=== PATIENT | female | born 1980 | race Caucasian/White ===

== ENCOUNTER → 2017-05-25 | Outpatient (CLI) | payer OTHER | LOC: FIMAGING 13:03 | PROVIDERS: ATTEND Advanced Practice Midwife | PROC: 10903ZU Drainage of Amniotic Fluid, Diagnostic from Products of Conception, Percutaneous Approach (ICD-10-PCS; principal; 2017-05-25) | DX: O09.512 Supervision of elderly primigravida, second trimester (principal); Z3A.21 21 weeks gestation of pregnancy | CPT/HCPCS: 88235-90; 88291-90 ==

== ENCOUNTER → 2017-07-27 | Outpatient (CLI) | payer OTHER | LOC: FIMAGING 09:02 | PROVIDERS: ATTEND Advanced Practice Midwife | DX: O35.8XX0 Maternal care for other (suspected) fetal abnormality and damage, not applicable or unspecified (principal); Z3A.30 30 weeks gestation of pregnancy ==

== ENCOUNTER → 2017-08-17 | Outpatient (CLI) | payer OTHER | LOC: FIMAGING 09:54 | PROVIDERS: ATTEND Advanced Practice Midwife | DX: O09.513 Supervision of elderly primigravida, third trimester (principal); Z3A.33 33 weeks gestation of pregnancy ==

== ENCOUNTER → 2017-09-16 | Outpatient (CLI) | payer OTHER | LOC: FIMAGING 11:54 | PROVIDERS: ATTEND Advanced Practice Midwife | DX: O09.513 Supervision of elderly primigravida, third trimester (principal); O35.8XX0 Maternal care for other (suspected) fetal abnormality and damage, not applicable or unspecified; Z3A.37 37 weeks gestation of pregnancy ==

== ENCOUNTER 2017-10-12 10:26 | Inpatient (IN) | payer OTHER ==
[2017-10-12] MEDS ORDERED: LIDOCAINE 1% 300 MG/30 ML SDV SC PRN (11:03)
[2017-10-12] MEDS ORDERED: MISOPROSTOL 200 MCG TAB PR PRN (11:03)
[2017-10-12] MEDS ORDERED: IBUPROFEN 600 MG TAB PO PRN (11:03)
[2017-10-12] MEDS ORDERED: OXYTOCIN/RINGERS LACTATE 1,000 ML IV PRN (11:03)
[2017-10-12] MEDS ORDERED: EPSOM SALT 454 GM TP PRN (11:03)
[2017-10-12] MEDS ORDERED: OLIVE OIL 118 ML BTL MISC PRN (11:03)
[2017-10-12] MEDS ORDERED: TERBUTALINE SULFATE 1 MG/ML VIAL IV PRN (11:03)
[2017-10-12] MEDS ORDERED: LR 1,000 ML IV PRN (11:03)
[2017-10-12] MEDS ORDERED: LR 500 ML IV PRN (11:52)
--- NOTE | 2017-10-12 11:54 | PDGENHP ---
History and Physical History and Physical: CARE: [facility] HPI: Patient is a 37 yo at 41.1 weeks ega who presents to L&D for IOL for oligohydramnios- COURTNEY 3 today per ultrasound. Baby has been active, denies painful cntx/LOF/VB. Sahni bulb was placed in the office prior to her admission here. EDC: 10/04/17 which is based on Ultrasound at 10 weeks. Her is complicated by: - AMA - h/o daily marijuana use - stopped with . UDS first trimester negative - persistent renal pelvis dilation - has met with pediatric urology who made following recommendations: - repeat U/S on baby at 48 hours of life - VCUG first week of life Review of Systems: Constitutional: Denies any fever, chills, or fatigue HEENT: denies any visual changes, difficulty swallowing, hearing loss Cardiovascular: Denies any chest pain, palpitations, leg swelling Respiratory: denies any cough, wheezing, or shortness of breathe GI: Denies any nausea, vomiting, diarrhea, constipation : denies any dysuria, urgency, frequency, vaginal bleeding Musculoskeletal: denies any muscle or bone pain Skin: denies any rashes Neuro: denies any headache, seizures, lightheadedness, dizziness, or loss of consciousness Psychiatric: denies any depression, anxiety, or SI/HI thoughts HISTORY: Previous OB history: 2005 - elective AB Past medical history: HSV 1, high cholesterol Past surgical history: Tonsils at age 6, wisdom teeth Medications: PNV Allergies (list reaction): NKDA LABS: Rh: B pos ABS: Neg Rubella: Immune HbsAg: NR HIV: NR VDRL: NR 1hr: 65 GC: Neg Chlamydia: Neg Pap: Normal GBS: neg Innatal/standard panel - WNL BMI: (prepreg) 20.5 PHYSICAL EXAM: Constitutional: WN, A&Ox3 HEENT: normocephalic atraumatic, supple Heart: RRR, no murmur Chest: CTA-B Abdomen: Soft, nontender, gravid SVE: sahni bulb in place - (was -/-2 in office) Extremities: mod pedal edema, negative cher's sign Neuro: grossly normal Psych: normal affect assessment: Reassuring FHTs, baseline 120s +accels, no decels, moderate variability Contractions: toco irregular cntx Assessment: 1) 37 yo G 2 P 0 with IUP@ 41.1 weeks ega 2) IOL for oligohydramnios 3) GBS neg 4) Cat 1 FHR tracing Plan: 1) Admit to L&D 2) Start pitocin 3) Continuous EFM 4) Diet as tolerated 5) Pain relief as patient desires 6) Anticipate
[2017-10-12] MEDS ORDERED: OXYTOCIN/RINGERS LACTATE 500 ML IV SCH (12:00)
[2017-10-12 12:15] LABS: PLATELET COUNT 278 10^3/uL (150-400)
[2017-10-12] MEDS ORDERED: LIDOCAINE 1% 300 MG/30 ML SDV ONE (17:08)
[2017-10-12] MEDS ORDERED: OXYTOCIN 10 UNIT/ML VIAL ONE (17:09)
[2017-10-12] MEDS ORDERED: AMMONIA AROMATIC 1 EACH AMP IH ONE (17:09)
[2017-10-12] MEDS ORDERED: MISOPROSTOL 200 MCG TAB ONE (17:09)
[2017-10-12] MEDS ORDERED: TERBUTALINE SULFATE 1 MG/ML VIAL ONE (17:09)
[2017-10-12] MEDS ORDERED: OLIVE OIL 118 ML BTL ONE (17:09)
--- NOTE | 2017-10-12 18:15 | OBPROG ---
Labor Progress Note Assessment/Plan: Assessment: 37 y/o at 41.1 weeks ega IOL for oligo latent phase labor AROM sml amt clear fluid Category 1 EFM Pitocin 10 mu Plan: Continue pitocin induction per protocol Pain relief as patient desires Anticipate 10/12/17 18:11 Subjective/Intrapartum Course: 10/12/17 18:13 Doing well. Getting more uncomfortable since AROM. Starting to breath with contractions. Objective: 10/12/17 12:05 Patient ABO/Rh B POSITIVE 10/12/17 12:05 - SVE Dilation (cm): 3 Effacement (%): 50 Station: -2 Membranes: AROM Amniotic Fluid Color: Clear - Contraction Pattern Assessment Current Contraction Pattern: Regular - Procedures Non-surgical Procedures: Amniotomy Oxytocin Orders Assessment - Pre-Induction/Augmentation Assessment Presentation: Vertex Gestational Age: 41 week(s) and 1 day(s) Gestational Age Determined By: Ultrasound Membrane Status: Ruptured Current Contraction Pattern: Regular - Induction/Augmentation Consent Risks/Benefits of Procedure Reviewed/Pt Agrees to Proceed: Yes ICD10 Worksheet Patient Problems: Problems Problem Status Onset Oligohydramnios Acute Post-dates Acute - ICD10 Problem Qualifiers (1) Oligohydramnios (2) Post-dates
[2017-10-12] MEDS ORDERED: SIMETHICONE 80 MG TAB CHEW PO PRN (21:40)
[2017-10-12] MEDS ORDERED: HYDROCORTISONE 0.5% CREAM TP PRN (21:40)
--- NOTE | 2017-10-12 21:48 | OBDEL ---
Info Type: Vaginal Presentation at Delivery: Vertex L&D Analgesia/Anesthesia Type: Local GBS+: No Intrapartum Medications: Generic Name Dose Route Start Last Admin Trade Name Freq PRN Reason Stop Dose Admin Lactated Ringer's 1,000 mls @ 0 mls/hr 10/12/17 11:03 10/12/17 12:27 Lr IV 10/13/17 11:02 1,000 mls PRN PRN Administration SEE PROTOCOL CONDITIONS Protocol Per Protocol Oxytocin/Lactated Ringer's 500 mls @ 0 mls/hr 10/12/17 12:00 10/12/17 12:27 Pitocin 30 Units/Lr (Premix) IV 04/10/18 11:59 500 mls CONT BEATRICE Administration Protocol Per Protocol Lidocaine HCl 300 mg 10/12/17 11:03 10/12/17 20:26 Lidocaine Hcl 1% SC 04/10/18 11:02 300 mg ONCE PRN Administration episiotomy Discontinued Medications Generic Name Dose Route Start Last Admin Trade Name Freq PRN Reason Stop Dose Admin Ibuprofen 600 mg 10/12/17 11:03 10/12/17 20:41 Motrin PO 600 mg ONCE PRN Administration post , pain - Hospital Course Intrapartum: 10/12/17 18:13 Doing well. Getting more uncomfortable since AROM. Starting to breath with contractions. Indications for Delivery: Oligohydramnios Vaginal Delivery - Delivery Provider Delivery Physician/CNM: Bela Ricardo - Labor and Delivery Onset of Contractions Date: 10/12/17 Onset of Contractions Time: 16:40 Onset of Contractions Type: Induced Rupture of Membranes Date: 10/12/17 Rupture of Membranes Time: 16:38 Rupture of Membranes Type: Artificial Amniotic Fluid Color: Clear Dilation Complete Date: 10/12/17 Dilation Complete Time: 20:00 Placenta Delivery Date: 10/12/17 Placenta Delivery Time: 20:21 Total Hours of Labor: 3 Non-surgical Procedures: Amniotomy Laceration: Other (Specify) (left labial) Repair: 3-0, Vicryl Vaginal Sponge Count Correct: Yes Vaginal Needle Count Correct: Yes Vaginal Sweep Performed: No EBL: 200 Delivery Events: None Data RAMIN: 10/04/17 Gestational Age: 41 week(s) and 1 day(s) Jj Delivery Date: 10/12/17 Delivery Time: 20:14 Sex of Infant: Female Score (1 Min): 8 Score (5 Min): 9 ICD10 Worksheet Patient Problems: Problems Problem Status Onset Oligohydramnios Acute Post-dates Acute - ICD10 Problem Qualifiers (1) Oligohydramnios (2) Post-dates
[2017-10-12] MEDS: HYDROCODONE/APAP 5/325 TAB PO PRN (22:13)
[2017-10-12 22:26] LABS: PLATELET COUNT 260 10^3/uL (150-400)
[2017-10-12] MEDS ORDERED: fentaNYL 100 MCG/2 ML INJ ONE (22:47)
[2017-10-12] MEDS: fentaNYL 100 MCG/2 ML INJ IVP PRN (22:59)
--- NOTE | 2017-10-12 23:56 | OBPP ---
Progress Note Assessment/Plan: Assessment: 37 y/o at 41.1 weeks ega s/p with left labial laceration Right vaginal hematoma which appears stable after 1 hour Severe pt discomfort Plan: Fentanyl 50 mcg IV Consult with Dr Rodriguez - see consult note 10/12/17 23:50 10/13/17 00:21 Subjective/ Course: 10/12/172229 Notified by RN that patient is having sever perineal discomfort - particularly tailbone, rectal, right vaginal. Not relieved with ibuprofen and [place]. Objective: 10/12/17 22:08 10/12/17 22:08 Patient ABO/Rh B POSITIVE 10/12/17 12:05 Uric Acid 5.6 mg/dL (2.5-6.8) 10/12/17 22:08 Total Bilirubin 0.6 mg/dL (0.1-1.4) 10/12/17 22:08 Conjugated Bilirubin 0.3 mg/dL (0.0-0.5) 10/12/17 22:08 Unconjugated Bilirubin 0.3 mg/dL (0.0-1.1) 10/12/17 22:08 AST 29 IU/L (14-46) 10/12/17 22:08 ALT 22 IU/L (9-52) 10/12/17 22:08 Lactate Dehydrogenase 511 IU/L (313-618) 10/12/17 22:08 Vagina examined - found to have what appears to be a hematoma that has formed behind right vaginal wall that feels approximately 8X5 cm. Vaginal bleeding WNL. FF/U2. Uterine Position/Fundal Height: Umbilicus -1 Uterine Tone: Firm
[2017-10-13] MEDS: fentaNYL 100 MCG/2 ML INJ IVP PRN ×2 (00:34→01:05)
--- NOTE | 2017-10-13 00:36 | PDHPUP ---
History & Physical Update H&P update statement: This history and physical update is based on an assessment of the patient which was completed after admission or registration (within 24 hours), but prior to the surgery/procedure. Consult from Bela Ricardo CNM. Pt had an unmedicated at 2013, c/b left labial laceration - repaired without incident. About one hour after delivery she complained of rectal pressure and pain. Exam by Bela Ricardo CNM, who delivered her, noted a right vaginal sidewall hematoma around 2230. Pt was given Fentanyl 50 mcg - which took the edge off her pain temporarily. An hour later she as asking for more pain medication and was unable to get comfortable again. Repeat exam by Bela and consultation and exam by me revealed a right vaginal sidewall hematoma, approximately [id number] - per Bela, has not significantly increased in size. Pt's pain is increasing. Discussed conservative mgmt vs surgical evacuation. Pt cannot tolerate conservative mgmt due to pain. A/p: 37 yo s/p 4 hours ago, with a R vaginal sidewall hematoma. 1) Written informed consent for surgical evacuation of vaginal hematoma. 2) T&C x 2, DIC panel now 3) Case discussed with Dr. Miller - will take pt down to the main OR as the possibility of significant blood loss is present, and the availability of the assistance of the trauma surgeon suction plate roller hand would be served in the main OR. Pina Rodriguez MD, FACOG H&P update: H&P reviewed & patient examined
[2017-10-13 00:46] LABS: PLATELET COUNT 255 10^3/uL (150-400)
[2017-10-13 00:54] LABS: INR 0.95 (0.83-1.16); PROTIME(PATIENT) 12.9 SEC (12.0-15.0)
[2017-10-13] MEDS ORDERED: IOPAMIDOL (ISOVUE-300) 100 ML BTL ONE (01:03)
--- NOTE | 2017-10-13 01:24 | SOAPPROG ---
SOAP Progress Note Assessment/Plan: Discussed case with Dr. Ng, trauma surgeon and again with Dr. Miller. He recommended proceeding with a CT scan, with IV contrast, to get a better idea of the extent of the hematoma and if it is actively bleeding vs stable. Will place urinary catheter, and proceed with imaging. Pina Rodriguez MD 10/13/17 01:07 Objective: Vital Signs Temp Pulse Resp BP Pulse Ox 37.1 C 68 16 132/79 H 96 10/13/17 00:18 10/13/17 00:18 10/13/17 00:18 10/13/17 00:18 10/13/17 00:18 Laboratory Results 10/13/17 00:16 10/12/17 22:08 10/11/17 10/12/17 10/13/17 05:59 05:59 05:59 Output Total 200 Balance -200 PT 12.9 SEC (12.0-15.0) 10/13/17 00:16 INR 0.95 (0.83-1.16) 10/13/17 00:16 ICD10 Worksheet Patient Problems: Problems Problem Status Onset Oligohydramnios Acute Post-dates Acute
[2017-10-13] MEDS: ACETAMINOPHEN 325 MG TAB PO SCH ×4 (02:06→20:32)
--- NOTE | 2017-10-13 02:08 | SOAPPROG ---
SOAP Progress Note Assessment/Plan: Discussed case with Dr. Ng, trauma surgeon and again with Dr. Miller. He recommended proceeding with a CT scan, with IV contrast, to get a better idea of the extent of the hematoma and if it is actively bleeding vs stable. Will place urinary catheter, and proceed with imaging. Pina Rodriguez MD 10/13/17 01:07 10/13/17 02:[address] Vegas in Radiology - CT scan shows active extravasation into the hematoma, which is displacing the rectum to the left, extending up to the mid sacrum into the ischiorectal fossa. Extends to the piriformis, but not the ileopsoas. Discussed findings with pt, Anesthesiologist Dr. Miller, and Dr. Ng. Will proceed with surgical evacuation as originally planned. Pina Rodriguez MD 10/13/17 02:12 Objective: Vital Signs Temp Pulse Resp BP Pulse Ox 37.1 C 68 16 132/79 H 96 10/13/17 00:18 10/13/17 00:18 10/13/17 00:18 10/13/17 00:18 10/13/17 00:18 Laboratory Results 10/13/17 00:16 10/12/17 22:08 10/11/17 10/12/17 10/13/17 05:59 05:59 05:59 Output Total 200 Balance -200 PT 12.9 SEC (12.0-15.0) 10/13/17 00:16 INR 0.95 (0.83-1.16) 10/13/17 00:16 ICD10 Worksheet Patient Problems: Problems Problem Status Onset Oligohydramnios Acute Post-dates Acute
[2017-10-13 02:24] LABS: PLATELET COUNT 249 10^3/uL (150-400)
[2017-10-13] MEDS ORDERED: MIDAZOLAM 2 MG/2 ML VIAL ONE (02:28)
[2017-10-13] MEDS ORDERED: CITRIC ACID/SODIUM CITRATE 30 ML UDCUP ONE (02:34)
[2017-10-13] MEDS ORDERED: MIDAZOLAM 2 MG/2 ML VIAL IVP ONE (02:38)
[2017-10-13] MEDS ORDERED: CITRIC ACID/SODIUM CITRATE 30 ML UDCUP PO ONE (02:38)
--- NOTE | 2017-10-13 02:39 | PDANEPAE ---
ANE Past Medical History - Cardiovascular History Hx Hypertension: No Hx Arrhythmias: No Hx Chest Pain: No Hx Coronary Artery / Peripheral Vascular Disease: No Hx CHF / Valvular Disease: No Hx Palpitations: No - Pulmonary History Hx COPD: No Hx Asthma/Reactive Airway Disease: No Hx Recent Upper Respiratory Infection: No Hx Oxygen in Use at Home: No Hx Sleep Apnea: No Sleep Apnea Screening Result - Last Documented: Negative ANE Review of Systems Review of Systems: ANE Patient History - Allergies Allergies/Adverse Reactions: No Known Allergies Allergy (Unverified 10/12/17 11:03) - Home Medications Home Medications: Docosahexanoic Acid [ Dha] 200 mg PO 10/12/17 [Last Taken 10/12/17 1] - NPO status NPO Since - Liquids (Date): 10/12/17 NPO Since - Liquids (Time): 23:00 NPO Since - Solids (Date): 10/12/17 NPO Since - Solids (Time): 23:00 ANE Labs/Vital Signs - Labs Result Diagrams: 10/13/17 00:16 10/12/17 22:08 - Vital Signs Blood Pressure: 132/79 Heart Rate: 68 Respiratory Rate: 16 O2 Sat (%): 96 Height: 172.72 cm Weight: 86.183 kg ANE Physical Exam - Airway Neck exam: FROM Mallampati Score: Class 1 Mouth exam: normal dental/mouth exam - Pulmonary Pulmonary: no respiratory distress - Cardiovascular Cardiovascular: regular rate and rhythym - ASA Status ASA Status: II, E JACKELIN Anesthesia Plan Anesthesia Plan: general endotracheal anesthesia
[2017-10-13] MEDS ORDERED: PROPOFOL 200 MG/20 ML VIAL ONE ×2 (02:43→03:25)
[2017-10-13] MEDS ORDERED: fentaNYL 250 MCG/5 ML INJ ONE (02:43)
[2017-10-13] MEDS ORDERED: TRANEXAMIC ACID 1,000 MG/10 ML VIAL ONE (03:15)
[2017-10-13] MEDS ORDERED: LR 1,000 ML IV ONE (03:16)
[2017-10-13] MEDS ORDERED: ceFAZolin 2 GM in NS 100 ML IV ONE (03:19)
[2017-10-13] MEDS ORDERED: DEXAMETHASONE 4 MG/ML VIAL ONE (03:24)
[2017-10-13] MEDS ORDERED: LIDOCAINE 2% 5 ML SDV ONE (03:24)
[2017-10-13] MEDS ORDERED: ONDANSETRON 4 MG/2 ML VIAL ONE (03:24)
[2017-10-13] MEDS ORDERED: ceFAZolin 1 GM VIAL ONE ×2 (03:24)
[2017-10-13] MEDS ORDERED: ROCURONIUM 100 MG/10 ML VIAL ONE (03:24)
[2017-10-13] MEDS ORDERED: ESTROGENS,CONJUGATED 30 GM CRTUBE VG ONE (03:55)
[2017-10-13] MEDS ORDERED: fentaNYL 100 MCG/2 ML INJ IVP PRN (04:16)
[2017-10-13] MEDS ORDERED: PROMETHAZINE HCL 25 MG/ML INJ IVP PRN (04:16)
[2017-10-13] MEDS ORDERED: NALOXONE HCL 0.4 MG/ML INJ IVP PRN (04:16)
[2017-10-13] MEDS ORDERED: LR 500 ML IV PRN (04:16)
--- NOTE | 2017-10-13 04:16 | POSTOPPROG ---
Post Op Note Date of Operation: 10/13/17 Surgeon: Pina Rodriguez Buffet Waiter/Waitress: Bela Ricardo CNM, needed for adequate retraction and exposure Anesthesiologist: Ricardo Miller MD Anesthesia: GET(General Endotracheal) Pre-op Diagnosis: Right vaginal hematoma Post-op Diagnosis: Same Indication: Right vaginal hematoma causing severe pain and actively bleeding per CT Procedure: Right vaginal hematoma evacuation and repair Findings: Large right vaginal sidewall hematoma Inf/Abcess present in the surg proc area at time of surgery?: No EBL: 100-500 Total fluids administered: 1500 ml Complications: none
--- NOTE | 2017-10-13 04:18 | POSTANESTH ---
Post Anesthetic Evaluation Cardiovascular Status: Normal, Stable Respiratory Status: Normal, Stable Level of Consciousness/Mental Status: Can Participate in Eval Pain Control: Adequate, Prn Tx Ordered Nausea/Vomiting Control: Adequate, Prn Tx Ordered Complications Possibly Related to Anesthesia: None Noted
[2017-10-13] MEDS ORDERED: HYDROCODONE/APAP 5/325 TAB ONE (04:38)
[2017-10-13] MEDS: HYDROCODONE/APAP 5/325 TAB PO PRN (04:40)
--- NOTE | 2017-10-13 04:56 | GOP ---
[f rep st] OPERATIVE REPORT DATE OF OPERATION: 10/13/2017 SURGEON: Pina Rodriguez MD PROCED TECH: Bela Ricardo CNM, needed for adequate retraction and exposure. ANESTHESIA: General endotracheal. ANESTHESIOLOGIST: Alex Miller MD. PREOPERATIVE DIAGNOSIS: Right vaginal hematoma causing severe pain and actively bleeding per CT. POSTOPERATIVE DIAGNOSIS: Same PROCEDURE PERFORMED: Right vaginal hematoma evacuation and repair. FINDINGS: Right vaginal sidewall hematoma, approximately 15 x 15 x 10 cm, compressing the rectum and pushing it to the left. Fully decompressed at end of procedure. ESTIMATED BLOOD LOSS: 400 mL. INDICATIONS: This 37-year-old 2, para 0 now 1, female had an unmedicated spontaneous vaginal delivery. Approximately an hour after her delivery, she began complaining of rectal discomfort and pain. Shortly after that, examination confirmed that she had a right vaginal hematoma. She was given pain medication and the exam was repeated about an hour later. Her pain was becoming intractable, so surgery was being considered even though it did not seem that the hematoma had significantly increased in size. A CT scan with IV contrast was obtained and this suggested that there was continued active extravasation in the area of the hematoma and did confirm that the hematoma was pushing on the rectum. DESCRIPTION OF PROCEDURE: Written informed consent was obtained from the patient. She was then taken down to the preoperative area. She was taken to the operating room and placed in the dorsal supine position. A time out was performed. She was given 2 gm of Ancef IV. When general anesthesia was deemed adequate, she was placed in the modified dorsal lithotomy position using the [place] stirrups. Her vagina and perineum were sterilely draped in the standard fashion. A weighted speculum was inserted into the vagina. [place] and [place] retractors were used to obtain adequate exposure. Further examination confirmed the existence of the hematoma. An incision was made over the hematoma approximately 8 cm long longitudinally along the vaginal sidewall. There was a significant amount of clot that was expressed from the hematoma cavity. Suction was used to help clean out the hematoma cavity. A combination of cautery and sutures were used to obtain excellent hemostasis at the base of the hematoma. The hematoma cavity was then closed with 3-0 Monocryl in a running locked fashion. The incision to the hematoma was closed with 2-0 Monocryl also in a running locked fashion. Excellent hemostasis was noted. A medial right labial laceration was also repaired with the 3-0 Monocryl. The patient tolerated the procedure well. She was extubated in the operating room and taken to the recovery room in stable condition with her Mckinney catheter in place. IV FLUIDS: 1500 mL. COMPLICATIONS: None. /[id number]/MODL MTDD
[2017-10-13] MEDS: IBUPROFEN 600 MG TAB PO SCH ×4 (07:07→20:30)
[2017-10-13] MEDS: DOCUSATE SODIUM 100 MG CAP PO PRN (20:30)
[2017-10-14] MEDS: IBUPROFEN 600 MG TAB PO SCH ×4 (02:34→19:56)
[2017-10-14] MEDS: ACETAMINOPHEN 325 MG TAB PO SCH ×4 (02:39→22:31)
[2017-10-14] MEDS: DOCUSATE SODIUM 100 MG CAP PO PRN ×2 (08:29→19:56)
--- NOTE | 2017-10-14 10:27 | OBPP ---
Progress Note Assessment/Plan: Assessment: [id number] s/p s/p hematoma evacuation PPD#2 anemia Plan: cont PP care pain management PRN cont to monitor bleeding anticipate d/c home tomorrow if bleeding and pain stable 10/14/17 10:23 Subjective/ Course: 10/12/172229 Notified by RN that patient is having sever perineal discomfort - particularly tailbone, rectal, right vaginal. Not relieved with ibuprofen and [place]. 10/14/17 10:25 Pt doing well, states she is having pain- but improves with ibuprofen. She reports moderate bleeding. She is and pumping. FOB @ BS and supportive. Objective: 10/13/17 00:16 10/12/17 22:08 Patient ABO/Rh B POSITIVE 10/12/17 12:05 Uric Acid 5.6 mg/dL (2.5-6.8) 10/12/17 22:08 Total Bilirubin 0.6 mg/dL (0.1-1.4) 10/12/17 22:08 Conjugated Bilirubin 0.3 mg/dL (0.0-0.5) 10/12/17 22:08 Unconjugated Bilirubin 0.3 mg/dL (0.0-1.1) 10/12/17 22:08 AST 29 IU/L (14-46) 10/12/17 22:08 ALT 22 IU/L (9-52) 10/12/17 22:08 Lactate Dehydrogenase 511 IU/L (313-618) 10/12/17 22:08 Temp Pulse Resp BP Pulse Ox 36.1 C 71 26 H 117/79 96 10/14/17 09:11 10/14/17 09:11 10/14/17 09:11 10/14/17 09:11 10/14/17 09:11 Uterine Position/Fundal Height: Umbilicus -2, Midline Uterine Tone: Firm Physical Exam - Physical Exam General Appearance: WD/WN, alert, no apparent distress Neck: supple Respiratory: normal breath sounds Cardiac/Chest: regular rate, rhythm Abdomen: non-tender, soft, other (perineum: healing well, significant bruising noted) Skin: normal color, warm/dry Neuro/Psych: alert, normal mood/affect, oriented x 3
[2017-10-15] MEDS: IBUPROFEN 600 MG TAB PO SCH ×2 (02:01→08:38)
[2017-10-15] MEDS: ACETAMINOPHEN 325 MG TAB PO SCH ×2 (04:30→08:37)
[2017-10-15] MEDS: DOCUSATE SODIUM 100 MG CAP PO PRN (08:41)
[2017-10-15 08:47] VITALS: BP 123/83
--- NOTE | 2017-10-15 11:22 | OBPP ---
Progress Note Assessment/Plan: Assessment: 1) s/p PPD # 3 - pt is stable 2) Vaginal hematoma with evacuation and repair POD # 1 - pt is stable 3) Anemia - pt is asymptomatic Plan: Plan for d/c home Instructions reviewed with pt No Rx given Cont PNV, iron and colace Pevic rest RTC with CNM in 2, 4 and 6 weeks for pp visit. 10/15/17 11:22 Subjective/ Course: 10/12/172229 Notified by RN that patient is having sever perineal discomfort - particularly tailbone, rectal, right vaginal. Not relieved with ibuprofen and [place]. 10/14/17 10:25 Pt doing well, states she is having pain- but improves with ibuprofen. She reports moderate bleeding. She is and pumping. FOB @ BS and supportive. 10/15/17 11:23 Pt seen and examined. Doing much better, bottom is sore but relief with Motrin. Mod lochia. Pt is OOB, krysten regular diet, voiding and passing flatus. No BM yet. BF without difficulty. Ready to go home. Objective: 10/13/17 00:16 10/12/17 22:08 Patient ABO/Rh B POSITIVE 10/12/17 12:05 Uric Acid 5.6 mg/dL (2.5-6.8) 10/12/17 22:08 Total Bilirubin 0.6 mg/dL (0.1-1.4) 10/12/17 22:08 Conjugated Bilirubin 0.3 mg/dL (0.0-0.5) 10/12/17 22:08 Unconjugated Bilirubin 0.3 mg/dL (0.0-1.1) 10/12/17 22:08 AST 29 IU/L (14-46) 10/12/17 22:08 ALT 22 IU/L (9-52) 10/12/17 22:08 Lactate Dehydrogenase 511 IU/L (313-618) 10/12/17 22:08 Temp Pulse Resp BP Pulse Ox 36.4 C 83 16 123/83 H 97 10/15/17 08:44 10/14/17 20:00 10/15/17 08:44 10/15/17 08:44 10/14/17 20:00 Uterine Position/Fundal Height: Umbilicus -2 Uterine Tone: Firm Physical Exam - Physical Exam General Appearance: alert, no apparent distress, mild distress Respiratory: lungs clear, normal breath sounds Cardiac/Chest: regular rate, rhythm Abdomen: normal bowel sounds, non-tender, soft, flatus (+), other (Perineum: + ecchymosis; healing well; intact) Extremities: non-tender, normal inspection Skin: normal color, warm/dry Neuro/Psych: alert, normal mood/affect, oriented x 3
--- NOTE | 2017-10-15 11:26 | OBGCSDC ---
General Delivery Information - General Info : 2 Para: 1 Abortions: 1 Type: Vaginal L&D Analgesia/Anesthesia Type: IV Narcotics, Local Admission Date: 10/12/17 Labs: Patient ABO/Rh B POSITIVE 10/12/17 12:05 Hct 36.2 % (38.0-47.0) L 10/13/17 00:16 - Hospital Course Intrapartum: 10/12/17 18:13 Doing well. Getting more uncomfortable since AROM. Starting to breath with contractions. : 10/12/170 Notified by RN that patient is having sever perineal discomfort - particularly tailbone, rectal, right vaginal. Not relieved with ibuprofen and [place]. 10/14/17 10:25 Pt doing well, states she is having pain- but improves with ibuprofen. She reports moderate bleeding. She is and pumping. FOB @ BS and supportive. 10/15/17 11:23 Pt seen and examined. Doing much better, bottom is sore but relief with Motrin. Mod lochia. Pt is OOB, krysten regular diet, voiding and passing flatus. No BM yet. BF without difficulty. Ready to go home. Vaginal - Delivery Provider Delivery Physician/CNM: Bela Ricardo - Diagnosis Labor: Induced Rupture of Membranes Type: Artificial Amniotic Fluid Color: Clear Laceration: Other (Specify) (left labial) Repair: 3-0, Vicryl Delivery Events: None - Procedures Non-surgical Procedures: Amniotomy - Delivery Providers Surgeon: Pina Rodriguez - Delivery Non-surgical Procedures: Amniotomy EBL: 200 Data RAMIN: 10/04/17 Gestational Age: 41 week(s) and 4 day(s) Jj Delivery Date: 10/12/17 Delivery Time: 20:14 Sex of : Female Weight (gm): 3004 g Score (1 Min): 8 Score (5 Min): 9 Discharge Information - Discharge Information Condition: Good Instruction/Follow Up: Two Weeks, Four Weeks, Six Weeks
== END 2017-10-15 01:30 | disposition home or self-care (01) | DRG 775 ==
LOC: FLD 10:26 → FOB 10-13 16:30
PROVIDERS: ADMIT Advanced Practice Midwife; ATTEND Advanced Practice Midwife
PROC: 10907ZC Drainage of Amniotic Fluid, Therapeutic from Products of Conception, Via Natural or Artificial Opening (ICD-10-PCS; principal; 2017-10-12)
PROC: 10E0XZZ Delivery of Products of Conception, External Approach (ICD-10-PCS; principal; 2017-10-12)
PROC: 0HQ9XZZ Repair Perineum Skin, External Approach (ICD-10-PCS; principal; 2017-10-12)
PROC: 0UCG7ZZ Extirpation of Matter from Vagina, Via Natural or Artificial Opening (ICD-10-PCS; 2017-10-13)
DX: O41.03X0 Oligohydramnios, third trimester, not applicable or unspecified (principal); O71.7 Obstetric hematoma of pelvis; Z37.0 Single live birth; Z3A.41 41 weeks gestation of pregnancy; O70.0 First degree perineal laceration during delivery
CPT/HCPCS: J0690; J1100; J2250; J2405; J2590; J2704; J3010; J3105; Q9967